=== PATIENT | female | born 1995 | race Caucasian/White ===

== ENCOUNTER 2023-11-12 16:34 | Emergency (ER) | payer BC, OTHER ==
[2023-11-12 16:53] VITALS: TEMP 98.9
[2023-11-12] MEDS ORDERED: Sodium Chloride 0.9% 1000 ML 1,000 ML ONE (17:27)
[2023-11-12] MEDS: Sodium Chloride 0.9% 1000 ML 1,000 ML IV STA (17:28)
[2023-11-12 17:37] LABS: Absolute Neutrophil Ct (ANC) 6.59 x10^3/uL (1.4-6.9); BASOPHIL % 0.2 % (0.0-0.4); Basophil (Absolute #) 0.02 x10^3/uL (0-0.4); Eosinophil % 0.8 % (0.00-5.0); Eosinophil (Absolute #) 0.08 x10^3/uL (0-0.5); Hematocrit 34.9 % (35-47); Hemoglobin 11.9 g/dL (12.0-16.0); IMMATURE GRAN # 0.03 x10^3u/L (0.00-0.03); IMMATURE GRAN % 0.3 % (0.00-0.4); Lymphocyte (Absolute #) 2.25 x10^3/uL (1.0-4.6); Lymphocytes % 23.3 % (24.0-44.0); Mean Cell Volume 88.6 fL (78-100); Mean Corpuscular Hemoglobin 30.2 pg (26-32); Mean Corpuscular Hgb Concent. 34.1 g/dL (32-36); Monocyte (Absolute #) 0.69 x10^3/uL (0.0-1.3); Monocytes % 7.1 % (0.0-12.0); Neutrophil % 68.3 % (36.0-66.0); Platelet Count 226 x10^3/uL (150-450); Red Blood Count 3.94 x10^6/uL (4.1-5.4); Red Cell Distribution Width 12.6 % (11.5-14.0); White Blood Count 9.7 x10^3/uL (4.0-10.5)
[2023-11-12 17:42] LABS: Appearance Clear (Clear); Bacteria None Seen /HPF (None Seen); Bilirubin Negative (Negative); Blood Small (Negative); Epithelial Cells None Seen /HPF (None Seen); Glucose, Urine Negative (Negative); Hyaline Casts NONE SEEN /LPF (0-2); Ketones Negative (Negative); Leukocyte Esterase Negative (Negative); Nitrite Negative (Negative); Ph 5.5 (4.6-8.0); Protein,Urine Dip Negative (Negative); RBC 0-2 /HPF (0-5); Specific Gravity 1.015 (1.005-1.030); WBC 0-2 /HPF (0-5)
--- NOTE | 2023-11-12 17:42 | ERPHSYRPT ---
- History of Present Illness Time Seen by Provider: 11/12/23 16:46 Source: patient Exam Limitations: no limitations Patient Subjective Stated Complaint: Pt has had some spotting today and is 6-7 weeks with slight cramping Triage Nursing Assessment: Pt brought self to the ER, vitals wnl, rates abdominal pain as 09/19, 2nd , 1 child at home, pulses normal, skin n/w/d, walked into the ER with a stable gait, no difficulty breathing, doesn't appear to be in any distress Physician History: 28-year-old 2 para 1 at almost 7 weeks gestation per LMP presented in the ER with cramping and spotting that started today with progressive worsening. Patient reports mild to moderate cramping in the pelvic area with gradually increasing spotting. She called her primary OB and was recommended to be seen in the ER. Patient denies any vaginal discharge. No recent sexual activity. Timing/Duration: today, gradual onset, worse Activites at Onset: none Allergies/Adverse Reactions: No Known Drug Allergies Allergy (Verified 11/12/23 16:53) Home Medications: No Home Meds [No Home Meds] 1 [facility] UD 02/06/15 [History] Hx Tetanus, Diphtheria Vaccination/Date Given: Yes Hx Influenza Vaccination/Date Given: No Hx Pneumococcal Vaccination/Date Given: No Travel Risk - International Travel Have you traveled outside of the country in past 3 weeks: No - Emerging Infectious Disease Are you exhibiting symptoms associated with any current EIDs: No - Review of Systems Constitutional: No Symptoms Ears, Nose, & Throat: No Symptoms Respiratory: No Symptoms Cardiac: No Symptoms Abdominal/Gastrointestinal: No Symptoms Genitourinary Symptoms: , Vaginal Bleeding Musculoskeletal: No Symptoms Skin: No Symptoms Neurological: No Symptoms Endocrine: No Symptoms Hematologic/Lymphatic: No Symptoms - Past Medical History Pertinent Past Medical History: No - Past Surgical History Past Surgical History: Yes Musculoskeletal: Orthopedic Surgery - Female History Hx Last Menstrual Period: 10/01/2023 Hx Now: Yes Gestational Age: 6-7 WEEKS - Social History Smoking Status: Never smoker Exposure to second hand smoke: No Drug Use: none Patient Lives Alone: No - Nursing Vital Signs Nursing Vital Signs: Initial Vital Signs Temperature 98.9 F 11/12/23 16:45 Pulse Rate 94 H 11/12/23 16:45 Blood Pressure 117/61 11/12/23 16:45 O2 Sat by Pulse Oximetry 100 11/12/23 16:45 Pain Scale Pain Intensity 2 - Physical Exam General Appearance: no apparent distress, alert Eye Exam: PERRL/EOMI Ears, Nose, Throat Exam: normal ENT inspection Neck Exam: normal inspection, supple, full range of motion Respiratory Exam: normal breath sounds, lungs clear Cardiovascular Exam: regular rate/rhythm, normal heart sounds Gastrointestinal/Abdomen Exam: soft, normal bowel sounds, tenderness (Minimal suprapubic tenderness) Extremity Exam: normal inspection, normal range of motion Neurologic Exam: alert, oriented x 3, cooperative Skin Exam: normal color SpO2 Interpretation: normal SpO2: 100 O2 Delivery: Room Air Ordered Tests: Active Orders 24 hr Category Date Time Status IV Insertion STAT Care 11/12/23 17:14 Active OB <14 WKS 1ST GESTATION [US] Stat Exams 11/12/23 17:16 Taken CBC W DIFF Stat Lab 11/12/23 17:25 Completed CMP Stat Lab 11/12/23 17:25 Completed HCG, Quantitative (Inhouse) Stat Lab 11/12/23 17:25 Completed UA W/RFX UR CULTURE Stat Lab 11/12/23 17:18 Completed Medication Summary Discontinued Medications Generic Name Dose Route Start Last Admin Trade Name Freq PRN Reason Stop Dose Admin Sodium Chloride 1,000 mls @ 999 mls/hr 11/12/23 17:14 11/12/23 17:28 Sodium Chloride 0.9% 1000 Ml IV 11/12/23 18:14 999 mls/hr .Q1H1M STA Administration Sodium Chloride Confirm 11/12/23 17:27 Sodium Chloride 0.9% 1000 Ml Administered 11/12/23 17:28 Dose 1,000 mls @ ud .ROUTE .STK-MED ONE Rho Immune Globulin 300 mcg 11/12/23 19:13 Rho(D) Immune Globulin 300 Mcg/Syr Ml IM 11/12/23 19:14 .ONCE ONE Lab/Rad Data: Laboratory Result Diagrams 11/12/23 17:25 11/12/23 17:25 Laboratory Results 11/12/23 11/12/23 11/12/23 Range/Units 18:03 17:25 17:25 WBC (4.0-10.5) x10^3/uL RBC (4.1-5.4) x10^6/uL Hgb (12.0-16.0) g/dL Hct (35-47) % MCV (78-100) fL MCH (26-32) pg MCHC (32-36) g/dL RDW (11.5-14.0) % Plt Count (150-450) x10^3/uL MPV (7.5-11.0) fL Gran % (36.0-66.0) % Immature Gran % (Auto) (0.00-0.4) % Nucleat RBC Rel Count (0.00-0.1) % Eos # (Auto) (0-0.5) x10^3/uL Immature Gran # (Auto) (0.00-0.03) x10^3u/L Absolute Lymphs (auto) (1.0-4.6) x10^3/uL Absolute Monos (auto) (0.0-1.3) x10^3/uL Absolute Nucleated RBC (0.00-0.01) x10^3u/L Lymphocytes % (24.0-44.0) % Monocytes % (0.0-12.0) % Eosinophils % (0.00-5.0) % Basophils % (0.0-0.4) % Absolute Granulocytes (1.4-6.9) x10^3/uL Basophils # (0-0.4) x10^3/uL Sodium 136 (135-145) mmol/L Potassium 3.5 (3.5-5.1) mmol/L Chloride 105 (98-107) mmol/L Carbon Dioxide 23 (22-30) mmol/L Anion Gap 12.0 (5-15) MEQ/L BUN 10 (7-17) mg/dL Creatinine 0.66 (0.52-1.04) mg/dL Estimated GFR 123.2 ML/MIN Glucose 89 (74-106) mg/dL Calcium 9.4 (8.4-10.2) mg/dL Total Bilirubin 0.50 (0.2-1.3) mg/dL AST 21 (14-36) U/L ALT 13 (0-35) U/L Alkaline Phosphatase 47 (38-126) U/L Serum Total Protein 7.3 (6.3-8.2) g/dL Albumin 4.2 (3.5-5.0) g/dL Beta HCG, Quant 07038 mIU/ml Urine Color (Yellow) Urine Appearance (Clear) Urine pH (4.6-8.0) Ur Specific [place] (1.005-1.030) Urine Protein (Negative) Urine Glucose (UA) (Negative) mg/dL Urine Ketones (Negative) Urine Blood (Negative) Urine Nitrite (Negative) Urine Bilirubin (Negative) Urine Urobilinogen (0.2) mg/dL Ur Leukocyte Esterase (Negative) U Hyaline Cast (Auto) (0-2) /LPF Urine Microscopic RBC (0-5) /HPF Urine Microscopic WBC (0-5) /HPF Ur Epithelial Cells (None Seen) /HPF Urine Bacteria (None Seen) /HPF Urine Culture Reflexed (NO) ABO Group A Rh Factor NEGATIVE Antibody Screen NEGATIVE (NEGATIVE) 11/12/23 11/12/23 Range/Units 17:25 17:18 WBC 9.7 (4.0-10.5) x10^3/uL RBC 3.94 L (4.1-5.4) x10^6/uL Hgb 11.9 L (12.0-16.0) g/dL Hct 34.9 L (35-47) % MCV 88.6 (78-100) fL MCH 30.2 (26-32) pg MCHC 34.1 (32-36) g/dL RDW 12.6 (11.5-14.0) % Plt Count 226 (150-450) x10^3/uL MPV 11.0 (7.5-11.0) fL Gran % 68.3 H (36.0-66.0) % Immature Gran % (Auto) 0.3 (0.00-0.4) % Nucleat RBC Rel Count 0.0 (0.00-0.1) % Eos # (Auto) 0.08 (0-0.5) x10^3/uL Immature Gran # (Auto) 0.03 (0.00-0.03) x10^3u/L Absolute Lymphs (auto) 2.25 (1.0-4.6) x10^3/uL Absolute Monos (auto) 0.69 (0.0-1.3) x10^3/uL Absolute Nucleated RBC 0.00 (0.00-0.01) x10^3u/L Lymphocytes % 23.3 L (24.0-44.0) % Monocytes % 7.1 (0.0-12.0) % Eosinophils % 0.8 (0.00-5.0) % Basophils % 0.2 (0.0-0.4) % Absolute Granulocytes 6.59 (1.4-6.9) x10^3/uL Basophils # 0.02 (0-0.4) x10^3/uL Sodium (135-145) mmol/L Potassium (3.5-5.1) mmol/L Chloride (98-107) mmol/L Carbon Dioxide (22-30) mmol/L Anion Gap (5-15) MEQ/L BUN (7-17) mg/dL Creatinine (0.52-1.04) mg/dL Estimated GFR ML/MIN Glucose (74-106) mg/dL Calcium (8.4-10.2) mg/dL Total Bilirubin (0.2-1.3) mg/dL AST (14-36) U/L ALT (0-35) U/L Alkaline Phosphatase (38-126) U/L Serum Total Protein (6.3-8.2) g/dL Albumin (3.5-5.0) g/dL Beta HCG, Quant mIU/ml Urine Color Yellow (Yellow) Urine Appearance Clear (Clear) Urine pH 5.5 (4.6-8.0) Ur Specific [place] 1.015 (1.005-1.030) Urine Protein Negative (Negative) Urine Glucose (UA) Negative (Negative) mg/dL Urine Ketones Negative (Negative) Urine Blood Small A (Negative) Urine Nitrite Negative (Negative) Urine Bilirubin Negative (Negative) Urine Urobilinogen 1.0 A (0.2) mg/dL Ur Leukocyte Esterase Negative (Negative) U Hyaline Cast (Auto) NONE SEEN (0-2) /LPF Urine Microscopic RBC 0-2 (0-5) /HPF Urine Microscopic WBC 0-2 (0-5) /HPF Ur Epithelial Cells None Seen (None Seen) /HPF Urine Bacteria None Seen (None Seen) /HPF Urine Culture Reflexed NO (NO) ABO Group Rh Factor Antibody Screen (NEGATIVE) - Progress Progress: improved Air Movement: good Progress Note: 11/12/23 19:22 28-year-old 2 para 1 is evaluated for early cramping and spotting. Patient is approximately 7 weeks per LMP. She is given fluids. She has minimal tenderness suprapubic area. Stable vitals. Workup showed normal white count, fairly unremarkable chemistries. No UTI. Patient ultrasound showed single IUP with a heart rate of 130s and small subchorionic hemorrhage per preliminary report, official report is pending. Patient is Rh-, will give RhoGAM. Discussed the results of workup with patient and supportive care which she understand and agrees. She is advised to follow-up with her OB. Discussed signs symptoms of worsening needing return to ER which she seems understanding. Blood Culture(s) Obtained: No Antibiotics given: No Counseled pt/family regarding: lab results, diagnosis, need for follow-up, rad results Medical Desision Making - Diagnostic Testing Diagnostic test were ordered, analyzed, and reviewed by me: Yes Radiological Interpretation: Reviewed by me - Departure Clinical Impression: Subchorionic hemorrhage, Vaginal bleeding affecting early Condition: Stable Critical Care Time: No Referrals: DOCTOR,NO FAMILY [Primary Care Provider] - Follow up/PCP as directed Instructions: Bleeding in Early (DC) Additional Instructions: Drink plenty of fluids to keep yourself well-hydrated. Pelvic rest. Avoid exertional activities. Follow-up with your OB for reevaluation in 1 to 2 days. Return to ER for worsening cramping/bleeding etc.
[2023-11-12 17:43] LABS: ADD URINE CULTURE? NO (NO)
[2023-11-12 17:50] LABS: ALBUMIN 4.2 g/dL (3.5-5.0); BILIRUBIN,TOTAL 0.5 mg/dL (0.2-1.3); Calcium 9.4 mg/dL (8.4-10.2); Creatinine 1 0.66 mg/dL (0.52-1.04); EST GLOMERULAR FILTRATION RATE 123.2 ML/MIN; Potassium 3.5 mmol/L (3.5-5.1); Total Protein 7.3 g/dL (6.3-8.2)
[2023-11-12 19:07] LABS: ABO TYPING A; Antibody Screen NEGATIVE (NEGATIVE); RH TYPING NEGATIVE
[2023-11-12] MEDS: Rhogam Plus 300 MCG IM ONE (20:38)
[2023-11-12 20:47] VITALS: PULSE 90
[2023-11-12 20:50] VITALS: BP 117/66; RESP 18; O2SAT 97
--- NOTE | 2023-11-13 09:31 | XRAY ---
Indication: Spotting and cramping. Two-dimensional transvaginal early OB ultrasound demonstrates single intrauterine gestational sac, pole, annual sac. Mean sac diameter is 1.58 cm corresponding to 6 weeks 2 days. Mean crown-rump length is 0.41 cm corresponding to 6 weeks 1 day. heart rate 138 BPM. Small 1.3 x 1.9 cm subchorionic hemorrhage. Left and right ovaries are sonographically unremarkable. No suspicious adnexal mass or free fluid. Impression: Single viable intrauterine measuring 6 weeks 2 days. Expected date confinement is July 05, 2024. Small subchorionic hemorrhage. Comment: Preliminary report was given.
== END 2023-11-12 20:52 | disposition home or self-care (01) ==
LOC: ED 16:34
DX: O43.891 Other placental disorders, first trimester (principal); O20.8 Other hemorrhage in early pregnancy; Z3A.01 Less than 8 weeks gestation of pregnancy; R10.2 Pelvic and perineal pain
CPT/HCPCS: 36000; 36415; 76801; 80053; 81001; 84702; 85025; 86850; 86900; 86901; 96372; 99284; J2790